=== PATIENT | female | born 1925 | race Caucasian/White ===

== ENCOUNTER 2016-11-03 13:05 | Emergency (ER) | payer BC, MEDICAID ==
--- NOTE | 2016-11-03 13:57 | EDM.PDOC ---
ED HISTORY OF PRESENT ILLNESS - General Chief Complaint: Respiratory Problem Stated Complaint: FLU? NOT MUCH URINE Time Seen by Provider: 11/03/16 13:35 Source: Reports: Patient History Limitations: Reports: No limitations - History of Present Illness INITIAL COMMENTS - FREE TEXT/NARRATIVE: 89-year-old female with cold symptoms, sore throat, intermittent cough and shortness of breath but her main concern is her decreased urination. Her caregiver thinks the urine is dark and possibly malodorous. She has no fevers or chills, cough is nonproductive, no abdominal pain nausea or vomiting. If it was just the cold symptoms they would not have come in, their main concern is the urine. No flank or back pain. Severity: mild - Related Data Allergies/ADRs: Allergies Allergy/AdvReac Type Severity Reaction Status Date / Time acetaminophen [From Percocet] Allergy Hives Verified 09/22/16 10:56 iodine Allergy Cannot Verified 09/22/16 10:56 Remember oxycodone HCl [From Percocet] Allergy Hives Verified 09/22/16 10:56 Sulfa (Sulfonamide Allergy Hives Verified 09/22/16 10:56 Antibiotics) Home Meds: Home Meds Aspirin [Halfprin] 81 mg PO DAILY 08/09/13 [History] atorvaSTATin [Lipitor] 20 mg PO BEDTIME 08/09/13 [History] Acetaminophen [Mapap] 500 mg PO QID 04/15/16 [History] Cholecalciferol (Vitamin D3) [Vitamin D3] 1 tab PO DAILY 04/15/16 [History] Multivitamin [Multivitamins] 1 cap PO DAILY 04/15/16 [History] Donepezil [Aricept] 5 mg PO BEDTIME 11/03/16 [History] Past Medical History HEENT History: Reports: Allergic rhinitis, Cataract, Sinusitis Cardiovascular History: Reports: CAD, High cholesterol, Hypertension, [place] Gastrointestinal History: Reports: Diverticulosis Musculoskeletal History: Reports: Arthritis, Back pain, chronic, Other (see below) Other Musculoskeletal History: back surgery Neurological History: Reports: Other (see below) Other Neuro History: short term memory increase in loss. Psychiatric History: Reports: Dementia Hematologic History: Reports: Anemia - Infectious Disease History Infectious Disease History: Reports: Chicken pox, Influenza, Measles, Mumps - Past Surgical History HEENT Surgical History: Reports: Cataract surgery GI Surgical History: Reports: Appendectomy Neurological Surgical History: Reports: Scoliosis, Other (see below) Other Neurological Surgeries/Procedures: some sort of back surgery at [facility] in [place] back Social & Family History - Tobacco Use Smoking Status *Q: Never Smoker Second Hand Smoke Exposure: No - Caffeine Use Caffeine Use: Reports: Coffee - Alcohol Use Days Per Week of Alcohol Use: 0 - Recreational Drug Use Recreational Drug Use: No ED ROS GENERAL - Review of Systems Review Of Systems: See Below Constitutional: Reports: malaise, other (Patient slept for 2 extra hours this morning which is unlike her). Denies: fever, chills HEENT: Reports: Throat pain (Mild) Respiratory: Reports: shortness of breath (Mild, intermittent), cough Cardiovascular: Denies: Chest pain, Palpitations GI/Abdominal: Denies: Abdominal pain, Nausea, Vomiting : Reports: other (Decreased urinary frequency and amount with dark somewhat malodorous urine) Neurological: Denies: headache ED EXAM, GENERAL - Physical Exam Exam: See Below Exam Limited By: No limitations General Appearance: alert, no apparent distress Respiratory/Chest: no respiratory distress, lungs clear Cardiovascular: regular rate, rhythm (Female) Exam: Other (No bladder distention or tenderness) Extremities: No: pedal edema Neurological: alert, oriented Course - Vital Signs Last Recorded V/S: Last Vital Signs Temp 98.6 F 11/03/16 13:33 Pulse 74 11/03/16 13:33 Resp 16 11/03/16 13:33 BP 157/72 H 11/03/16 13:33 Pulse Ox 98 11/03/16 13:33 - Orders/Labs/Meds Labs: Laboratory Tests 11/03/16 11/03/16 11/03/16 Range/Units 13:52 13:52 13:52 WBC 4.2 L (4.5-11.0) K/uL RBC 2.92 L (3.30-5.50) M/uL Hgb 9.1 L (12.0-15.0) g/dL Hct 29.6 L (36.0-48.0) % MCV 101 H (80-98) fL MCH 31 (27-31) pg MCHC 31 L (32-36) % Plt Count 307 (150-400) K/uL Neut % (Auto) 58 (36-66) % Lymph % (Auto) 22 L (24-44) % [place] % (Auto) 14 H (2-6) % Eos % (Auto) 5 H (2-4) % Baso % (Auto) 1 (0-1) % Sodium 139 L (140-148) mmol/L Potassium 3.5 L (3.6-5.2) mmol/L Chloride 103 (100-108) mmol/L Carbon Dioxide 28 (21-32) mmol/L Anion Gap 11.5 (5.0-14.0) mmol/L BUN 21 H D (7-18) mg/dL Creatinine 1.3 H (0.6-1.0) mg/dL Est Cr Clr Drug Dosing 22.14 mL/min Estimated GFR (MDRD) 39 L (>60) Glucose 112 H (74-106) mg/dL Calcium 8.4 L (8.5-10.1) mg/dL Urine Color Yellow Urine Appearance Clear Urine pH 5.0 (4.5-8.0) Ur Specific [place] 1.010 (1.008-1.030) Urine Protein Negative (NEGATIVE) mg/dL Urine Glucose (UA) Normal (NEGATIVE) mg/dL Urine Ketones Negative (NEGATIVE) mg/dL Urine Occult Blood Negative (NEGATIVE) Urine Nitrite Negative (NEGATIVE) Urine Bilirubin Negative (NEGATIVE) Urine Urobilinogen Normal (NORMAL) mg/dL Ur Leukocyte Esterase Negative (NEGATIVE) Urine RBC 0-5 (0-5) Urine WBC 0-5 (0-5) Ur Epithelial Cells Few Amorphous Sediment Few Urine Bacteria Not seen Urine Mucus Not seen - Re-Assessments/Exams Free Text/Narrative Re-Assessment/Exam: 11/03/16 13:57 A UA was obtained, along with a CBC and BMP. 11/03/16 15:40 Labs were reassuring along with a normal UA. Her creatinine was 1.3, GFR 39 which is consistent with past readings. Specific gravity was 1.010. Departure - Departure Time of Disposition: 14:53 Disposition: Home, Self-Care 01 Condition: good Clinical Impression: Viral URI with cough, History of changes to urinary frequency Instructions: Upper Respiratory Infection, Pediatric, [id number], Acute Urinary Retention, Female, [id number] Referrals: Aisha Zhang CHEMICAL PATHOLOGIST [Primary Care Provider] - Forms: ED Department Discharge Care Plan Goals: Continue with rest, fluids, and return as needed.
[2016-11-03 14:18] VITALS: BP 157/72
== END 2016-11-03 14:53 | disposition home or self-care (01) ==
LOC: JP.ED 13:05
DX: J06.9 Acute upper respiratory infection, unspecified (principal); I25.2 Old myocardial infarction; I10 Essential (primary) hypertension; I25.10 Atherosclerotic heart disease of native coronary artery without angina pectoris; E78.00 Pure hypercholesterolemia, unspecified; F03.90 Unspecified dementia, unspecified severity, without behavioral disturbance, psychotic disturbance, mood disturbance, and anxiety; Z79.82 Long term (current) use of aspirin; Z79.899 Other long term (current) drug therapy; Z88.2 Allergy status to sulfonamides; Z88.5 Allergy status to narcotic agent; Z88.8 Allergy status to other drugs, medicaments and biological substances; Z91.041 Radiographic dye allergy status
CPT/HCPCS: 36415; 80048; 81001; 85025; 99282; 99283

== ENCOUNTER 2016-12-14 10:14 | Observation (INO) | payer BC ==
--- NOTE | 2016-12-14 11:03 | EDM.PDOC ---
[id number]: CHEST PAIN/ GOING DOWN LT ARM Time Seen by Provider: 12/14/16 10:45 Source: Reports: Patient History Limitations: Reports: No limitations - History of Present Illness INITIAL COMMENTS - FREE TEXT/NARRATIVE: 89-year-old female with known coronary artery disease woke this morning with some moderate chest pressure with some pain radiating into her arm. She thought she may have had some mild shortness of breath as well but no diaphoresis or nausea. This was 5-6 hours ago, she called her neighbor later this morning to come in to be checked although she was feeling fine and the pain had resolved. Her neighbor think she looks "a little pale". Severity: mild Location, General: Reports: chest Quality: Reports: Ache Associated Symptoms: Reports: chest pain. Denies: cough, nausea/vomiting, weakness - Related Data Allergies/ADRs: Allergies Allergy/AdvReac Type Severity Reaction Status Date / Time acetaminophen [From Percocet] Allergy Hives Verified 09/22/16 10:56 iodine Allergy Cannot Verified 09/22/16 10:56 Remember oxycodone HCl [From Percocet] Allergy Hives Verified 09/22/16 10:56 Sulfa (Sulfonamide Allergy Hives Verified 09/22/16 10:56 Antibiotics) Home Meds: Home Meds Aspirin [Halfprin] 81 mg PO DAILY 08/09/13 [History] atorvaSTATin [Lipitor] 20 mg PO BEDTIME 08/09/13 [History] Acetaminophen [Mapap] 500 mg PO QID 04/15/16 [History] Cholecalciferol (Vitamin D3) [Vitamin D3] 1 tab PO DAILY 04/15/16 [History] Multivitamin [Multivitamins] 1 cap PO DAILY 04/15/16 [History] Donepezil [Aricept] 5 mg PO BEDTIME 11/03/16 [History] Irbesartan 300 mg PO DAILY 12/14/16 [History] Ferrous Sulfate 325 mg PO DAILY #30 tablet 12/15/16 [Rx] Omeprazole 20 mg PO DAILY #30 cap.cr 12/15/16 [Rx] Past Medical History HEENT History: Reports: Allergic rhinitis, Cataract, Sinusitis Cardiovascular History: Reports: CAD, High cholesterol, Hypertension, [place] Gastrointestinal History: Reports: Diverticulosis Musculoskeletal History: Reports: Arthritis, Back pain, chronic, Other (see below) Other Musculoskeletal History: back surgery Neurological History: Reports: Other (see below) Other Neuro History: short term memory increase in loss. Psychiatric History: Reports: Dementia Hematologic History: Reports: Anemia - Infectious Disease History Infectious Disease History: Reports: Chicken pox, Influenza, Measles, Mumps - Past Surgical History HEENT Surgical History: Reports: Cataract surgery GI Surgical History: Reports: Appendectomy Neurological Surgical History: Reports: Scoliosis, Other (see below) Other Neurological Surgeries/Procedures: some sort of back surgery at [facility] [place] Social & Family History - Tobacco Use Smoking Status *Q: Never Smoker Second Hand Smoke Exposure: No - Caffeine Use Caffeine Use: Reports: Coffee - Alcohol Use Days Per Week of Alcohol Use: 0 - Recreational Drug Use Recreational Drug Use: No ED ROS GENERAL - Review of Systems Review Of Systems: See Below Constitutional: Reports: malaise. Denies: fever, chills HEENT: Reports: No symptoms Respiratory: Denies: Shortness of Breath, Cough Cardiovascular: Reports: Chest pain. Denies: Palpitations GI/Abdominal: Reports: Nausea (Mild nausea this morning). Denies: Abdominal pain : Reports: no symptoms Skin: Reports: pallor Neurological: Reports: Weakness ED EXAM, GENERAL - Physical Exam Exam: See Below Exam Limited By: No limitations General Appearance: alert, no apparent distress Eye Exam: bilateral eye: normal inspection (No jaundice good hydration) Respiratory/Chest: no respiratory distress, lungs clear Cardiovascular: regular rate, rhythm GI/Abdominal: soft, non tender Extremities: normal inspection, pedal edema (Just a trace of symmetric lower extremity edema is present) Neurological: alert, oriented Psychiatric: flat affect Skin Exam: Warm, Dry EKG INTERPRETATION Rhythm: NSR Course - Vital Signs Last Recorded V/S: Last Vital Signs Temp 98.6 F 12/15/16 11:13 Pulse 64 12/15/16 11:13 Resp 16 12/15/16 11:13 BP 154/65 H 12/15/16 11:13 Pulse Ox 97 12/15/16 11:13 - Orders/Labs/Meds Labs: Laboratory Tests 12/14/16 12/14/16 12/14/16 Range/Units 11:09 11:09 11:09 WBC 5.6 (4.5-11.0) K/uL RBC 2.78 L (3.30-5.50) M/uL Hgb 8.0 L (12.0-15.0) g/dL Hct 26.3 L (36.0-48.0) % MCV 95 (80-98) fL MCH 29 (27-31) pg MCHC 30 L (32-36) % Plt Count 357 (150-400) K/uL Neut % (Auto) 66 (36-66) % Lymph % (Auto) 20 L (24-44) % [place] % (Auto) 11 H (2-6) % Eos % (Auto) 3 (2-4) % Baso % (Auto) 1 (0-1) % Sodium 144 (140-148) mmol/L Potassium 4.2 (3.6-5.2) mmol/L Chloride 107 (100-108) mmol/L Carbon Dioxide 25 (21-32) mmol/L Anion Gap 11.8 (5.0-14.0) mmol/L BUN 17 (7-18) mg/dL Creatinine 1.0 (0.6-1.0) mg/dL Est Cr Clr Drug Dosing TNP Estimated GFR (MDRD) 52 L (>60) Glucose 102 (74-106) mg/dL Calcium 8.3 L (8.5-10.1) mg/dL Total Bilirubin 0.2 (0.2-1.0) mg/dL AST 15 (15-37) U/L ALT 19 (12-78) U/L Alkaline Phosphatase 70 (46-116) U/L Troponin I < 0.017 (0.000-0.056) ng/mL Total Protein 6.6 (6.4-8.2) g/dL Albumin 3.2 L (3.4-5.0) g/dL Globulin 3.4 (2.3-3.5) g/dL Albumin/Globulin Ratio 0.9 L (1.2-2.2) Blood Type B POSITIVE Gel Antibody Screen Negative Crossmatch See Detail Meds: Medications Discontinued Medications Generic Name Dose Route Start Last Admin Trade Name Freq PRN Reason Stop Dose Admin Acetaminophen 500 mg 12/14/16 16:00 12/15/16 10:27 Tylenol Extra Strength PO 500 mg QID EBONY Administration Al Hydroxide/Mg Hydroxide 30 ml 12/14/16 16:20 12/14/16 16:40 Mag-Al Plus PO 30 ml Q4H PRN Administration Heartburn Aspirin 81 mg 12/15/16 09:00 12/15/16 08:50 Halfprin PO 81 mg DAILY EBONY Administration Atorvastatin Calcium 20 mg 12/14/16 21:00 12/14/16 21:36 Lipitor PO 20 mg BEDTIME EBONY Administration Calcium Carbonate/Glycine 1,000 mg 12/14/16 17:07 Tums PO Q2H PRN Indigestion Iron Sucrose 100 mg/ Sodium 105 mls @ 400 mls/hr 12/15/16 09:30 12/15/16 10: 14 Chloride IV 12/15/16 09:45 400 mls/hr ONETIME ONE Administration Ibuprofen 400 mg 12/14/16 17:07 Motrin PO Q6H PRN Pain/Fever (Donepezil [Aricept] 5 mg 12/14/16 21:00 12/14/16 21:36 5 Mg)Pom PO 5 mg BEDTIME EBONY Administration (Multivitamin [ 1 cap 12/15/16 09:00 12/15/16 08:50 Multivitamins] 1 Cap PO 1 cap )Pom DAILY EBONY Administration (Irbesartan [ 300 mg 12/15/16 09:00 12/15/16 08:50 Irbesartan] 300 Mg)* PO 300 mg *Pom DAILY EBONY Administration Ondansetron HCl 4 mg 12/14/16 15:24 Zofran Odt PO Q6H PRN Nausea able to take PO Pantoprazole Sodium 40 mg 12/14/16 21:00 12/14/16 21:36 Protonix PO 40 mg BEDTIME EBONY Administration Pantoprazole Sodium 40 mg 12/15/16 09:00 12/15/16 08:52 Protonix PO 40 mg DAILY EBONY Administration Polyethylene Glycol 17 gm 12/14/16 15:24 Miralax PO DAILY PRN Constipation - Re-Assessments/Exams Free Text/Narrative Re-Assessment/Exam: 12/14/16 11:57 CBC, CMP and troponin were obtained. EKG showed normal sinus rhythm. Hemoglobin returned an 8.0, it's been over 11 as recently as 3-4 months ago. A stool guaiac was then obtained 12/14/16 12:21 Stool Hemoccult was negative. I asked Dr. Pablo of the hospitalist service to visit with the patient to consider admission for possible transfusion or other therapy or treatment. Departure - Departure Time of Disposition: 13:42 Disposition: Admitted As Inpatient 68 Condition: fair Clinical Impression: Anemia Qualifiers: Anemia type: iron deficiency Iron deficiency anemia type: unspecified iron deficiency Qualified Code(s): D50.9 - Iron deficiency anemia, unspecified Chest pain Qualifiers: Chest pain type: precordial pain Qualified Code(s): R07.2 - Precordial pain
--- NOTE | 2016-12-14 12:46 | PCM.HP ---
H&P History of Present Illness - General Date of Service: 12/14/16 Admit Problem/Dx: Admission Diagnosis/Problem Admission Diagnosis/Problem Anemia Source of Information: Patient, Family, Provider History Limitations: Reports: No limitations - History of Present Illness Initial Comments - Free Text/Narative: Steffanie presents to the emergency room this morning after having an episode of chest pressure early this morning. Because of her dementia she has some difficulty recalling the exact details. She thinks that she woke up this morning with some slight discomfort in the middle of her chest. This was pressure like and very mild. It did not radiate and stayed relatively constant but she is not quite sure of the duration. Discomfort when away on its own without any sort of intervention. She believes this is similar to pains that she's had in the past. She does not think that she had associated symptoms such as diaphoresis, shortness of breath or palpitations. She's not aware of any recent fevers. She does note that she has been feeling weak and fatigued over the past few weeks as compared to her baseline. Her appetite is not very impressive but is at baseline. No weight changes. No dysuria. Bowel movements have been relatively normal but one of her caregivers thinks that maybe they have been darker than usual. No obvious blood in her stool or hematemesis. Workup in the emergency room revealed a normal EKG and normal troponin. No major concerns for acute coronary syndrome based on emergency room evaluation but her hemoglobin was noted to be 8 and was more than 10 just a couple of months ago. She will be admitted for blood transfusion at additional workup. - Related Data Allergies/Adverse Reactions: Allergies Allergy/AdvReac Type Severity Reaction Status Date / Time acetaminophen [From Percocet] Allergy Hives Verified 09/22/16 10:56 iodine Allergy Cannot Verified 09/22/16 10:56 Remember oxycodone HCl [From Percocet] Allergy Hives Verified 09/22/16 10:56 Sulfa (Sulfonamide Allergy Hives Verified 09/22/16 10:56 Antibiotics) Home Medications: Home Meds Aspirin [Halfprin] 81 mg PO DAILY 08/09/13 [History] atorvaSTATin [Lipitor] 20 mg PO BEDTIME 08/09/13 [History] Acetaminophen [Mapap] 500 mg PO QID 04/15/16 [History] Cholecalciferol (Vitamin D3) [Vitamin D3] 1 tab PO DAILY 04/15/16 [History] Multivitamin [Multivitamins] 1 cap PO DAILY 04/15/16 [History] Donepezil [Aricept] 5 mg PO BEDTIME 11/03/16 [History] Irbesartan 300 mg PO DAILY 12/14/16 [History] Past Medical History HEENT History: Reports: Allergic rhinitis, Cataract, Sinusitis Cardiovascular History: Reports: CAD, High cholesterol, Hypertension, [place] Gastrointestinal History: Reports: Diverticulosis Musculoskeletal History: Reports: Arthritis, Back pain, chronic, Other (see below) Other Musculoskeletal History: back surgery Neurological History: Reports: Other (see below) Other Neuro History: short term memory increase in loss. Psychiatric History: Reports: Dementia Hematologic History: Reports: Anemia - Infectious Disease History Infectious Disease History: Reports: Chicken pox, Influenza, Measles, Mumps - Past Surgical History HEENT Surgical History: Reports: Cataract surgery GI Surgical History: Reports: Appendectomy Neurological Surgical History: Reports: Scoliosis, Other (see below) Other Neurological Surgeries/Procedures: some sort of back surgery at [facility] in [place] Social & Family History - Family History Cardiac: Reports: CAD - Tobacco Use Smoking Status *Q: Never Smoker Second Hand Smoke Exposure: No - Caffeine Use Caffeine Use: Reports: Coffee - Alcohol Use Days Per Week of Alcohol Use: 0 - Recreational Drug Use Recreational Drug Use: No H&P Review of Systems - Review of Systems: Review Of Systems: See Below Free Text/Narrative: A complete 12 point review of systems was obtained. Pertinent positives and negatives are noted in the history of present illness. All other systems were reviewed and were negative except as noted. Exam - Exam Exam: See Below - Vital Signs Vital Signs: Last Vital Signs Temp 36.5 C 12/14/16 10:49 Pulse 69 12/14/16 12:25 Resp 15 12/14/16 12:25 BP 148/59 H 12/14/16 11:40 Pulse Ox 97 12/14/16 12:25 Weight: 54.431 kg - Exam Quality Assessment: No: supplemental oxygen, urinary catheter General: alert, cooperative, mild distress HEENT: Conjunctiva clear, Mucosa moist & pink. No: Scleral icterus Neck: supple, trachea midline. No: JVD Lungs: Clear to auscultation, Normal respiratory effort Cardiovascular: regular rate, regular rhythm, normal S1, normal S2. No: systolic murmur Abdomen: normal bowel sounds, soft. No: distention, tenderness, mass Back Exam: normal inspection, full range of motion Extremities: normal inspection. No: cyanosis, edema Skin: warm, dry, intact. No: rash, petechia Neuro Extensive - Mental Status: alert, oriented x3, nl response to commands Neuro Extensive - Motor, Sensory, Reflexes: CN II-XII intact, tremor (Essential tremor of right hand). No: dysarthria, abnormal motor Psychiatric: alert, normal affect - Patient Data Lab Results last 24 hrs: Laboratory Results - last 24 hr 12/14/16 12/14/16 Range/Units 11:09 11:09 WBC 5.6 (4.5-11.0) K/uL RBC 2.78 L (3.30-5.50) M/uL Hgb 8.0 L (12.0-15.0) g/dL Hct 26.3 L (36.0-48.0) % MCV 95 (80-98) fL MCH 29 (27-31) pg MCHC 30 L (32-36) % Plt Count 357 (150-400) K/uL Neut % (Auto) 66 (36-66) % Lymph % (Auto) 20 L (24-44) % [place] % (Auto) 11 H (2-6) % Eos % (Auto) 3 (2-4) % Baso % (Auto) 1 (0-1) % Sodium 144 (140-148) mmol/L Potassium 4.2 (3.6-5.2) mmol/L Chloride 107 (100-108) mmol/L Carbon Dioxide 25 (21-32) mmol/L Anion Gap 11.8 (5.0-14.0) mmol/L BUN 17 (7-18) mg/dL Creatinine 1.0 (0.6-1.0) mg/dL Est Cr Clr Drug Dosing TNP Estimated GFR (MDRD) 52 L (>60) Glucose 102 (74-106) mg/dL Calcium 8.3 L (8.5-10.1) mg/dL Total Bilirubin 0.2 (0.2-1.0) mg/dL AST 15 (15-37) U/L ALT 19 (12-78) U/L Alkaline Phosphatase 70 (46-116) U/L Troponin I < 0.017 (0.000-0.056) ng/mL Total Protein 6.6 (6.4-8.2) g/dL Albumin 3.2 L (3.4-5.0) g/dL Globulin 3.4 (2.3-3.5) g/dL Albumin/Globulin Ratio 0.9 L (1.2-2.2) Result Diagrams: 12/14/16 11:09 12/14/16 11:09 Marycruz Results last 24 hrs: Microbiology 12/14/16 11:47 Stool Occult Blood (MARYCRUZ) - Final Stool / Feces NEGATIVE OCCULT BLOOD EKG INTERPRETATION EKG Date: 12/14/16 Rhythm: NSR Rate (beats/min): 65 [place]: normal P-wave: present QRS: normal ST-T: normal QT: normal EKG Interpretation Comments: This image was personally reviewed and interpreted in the emergency room *Q Meaningful Use (ADM) - VTE *Q VTE Criteria *Q: - Stroke *Q Stroke Criteria *Q: - AMI *Q AMI Criteria *Q: - Problem List (1) Atypical chest pain SNOMED Code(s): 437450807 ICD Code: R07.89 - OTHER CHEST PAIN Status: Acute Current Visit: Yes (2) Normocytic anemia SNOMED Code(s): 630962937 ICD Code: D64.9 - ANEMIA, UNSPECIFIED Status: Acute Current Visit: Yes (3) Coronary artery disease SNOMED Code(s): 84374247 ICD Code: I25.10 - ATHSCL HEART DISEASE OF [place] CORONARY ARTERY W/O ANG PCTRS Status: Acute Current Visit: Yes Qualifiers: Coronary Disease-Associated Artery/Lesion type: [place] artery [place] vs. transplanted heart: [place] heart Associated angina: without angina Qualified Code(s): I25.10 - Atherosclerotic heart disease of [place] coronary artery without angina pectoris (4) Dementia SNOMED Code(s): 55415519 ICD Code: F03.90 - UNSPECIFIED DEMENTIA WITHOUT BEHAVIORAL DISTURBANCE Status: Acute Current Visit: Yes Qualifiers: Dementia type: Alzheimer's disease Alzheimer's disease onset: late-onset Problem List Initiated/Reviewed/Updated: Yes Orders Last 24hrs: Active Orders 24 hr Category Date Time Status Patient Status Manage Transfer [TRANSFER] Routine ADT 12/14/16 12:37 Active EKG Documentation Completion [RC] ASDIRECTED Care 12/14/16 11:03 Active RED BLOOD CELLS LP [BBK] Routine Lab 12/14/16 11:09 Received TYPE AND SCREEN [BBK] Routine Lab 12/14/16 11:09 Received Transfuse Red Blood Cells [COMM] Routine Oth 12/14/16 12:35 Ordered Resuscitation Status Routine Resus Stat 12/14/16 12:38 Ordered EKG 12 Lead [EK] Routine Ther 12/14/16 11:03 Ordered Assessment/Plan Comment:: Assessment and plan - Atypical chest pain/pressure - recent stress testing was unremarkable. Pain is very atypical and could be gastrointestinal versus atypical cardiac pain in the setting of anemia. Troponin normal and EKG unremarkable and unchanged. Recent functional status has been acceptable and there have been no limitations during therapy. She was hypertensive on arrival but this has been improving. -Continue blood pressure control -Monitor for GI symptoms -I don't believe she needs additional cardiac workup unless something changes Normocytic anemia - Baseline hemoglobin around 10.5 and now down to 8. Could be do to blood loss or poor production or poor absorption of iron. Hemoccult was negative. No drastic weight changes to raise concern for progressive malignancy. She is not hemodynamically unstable at this time. With her history of coronary artery disease and this episode of chest pressure, even though I don't think it is cardiac, I'm going to transfuse 1 unit of packed red blood cells. -Type and cross for one unit of packed red blood cells -Iron, ferritin, B12 levels in the morning -Repeat hemoglobin in the morning -Discuss risk versus benefit of outpatient endoscopy if above workup is unremarkable and she does not respond to the blood transfusion. Alzheimer's type dementia without behavioral disturbance - Mild issues at this time, still lives fairly independently with some help from friends and family. -Continue donepezil Maintenance issues - - DVT prophylaxis - mechanical - GI prophylaxis - consider proton pump inhibitor - Nutrition - regular diet - Bui catheter - not indicated CODE STATUS - Full Admission justification - patient will be referred observation status for blood transfusion and repeat lab testing Disposition - anticipate discharge to home tomorrow Primary care physician - Dr Ross Pablo M.D.
[2016-12-14] MEDS ORDERED: Ondansetron 4 MG Tab.DIS PO PRN (15:24)
[2016-12-14] MEDS ORDERED: Polyethylene Glycol 3350 Powder 17 GM Packet PO PRN (15:24)
[2016-12-14] MEDS ORDERED: Aluminum Hydroxide/Magnesium Hydroxide/Simethicone Susp 30 ML Cup PO PRN (16:20)
[2016-12-14] MEDS: Acetaminophen 500 MG Tab PO SCH ×2 (16:30→21:36)
[2016-12-14] MEDS ORDERED: Ibuprofen 400 MG Tab PO PRN (17:07)
[2016-12-14] MEDS ORDERED: Calcium Carbonate 500 MG Tab.Chew PO PRN (17:07)
[2016-12-14] MEDS ORDERED: Pantoprazole 40 MG Tab.CR PO SCH (21:00)
[2016-12-14] MEDS ORDERED: ATORVASTATIN 20 MG PO SCH (21:00)
[2016-12-14] MEDS ORDERED: DONEPEZIL 5 MG PO SCH (21:00)
[2016-12-15] MEDS: Acetaminophen 500 MG Tab PO SCH ×2 (05:56→10:27)
[2016-12-15] MEDS ORDERED: Pantoprazole 40 MG Tab.CR PO SCH (09:00)
[2016-12-15] MEDS ORDERED: Aspirin 81 MG Tab.EC PO SCH (09:00)
[2016-12-15] MEDS ORDERED: Iron Sucrose Complex 100 MG in Sodium Chloride 0.9% 100 ML IV ONE (09:30)
[2016-12-15 11:14] VITALS: BP 154/65
--- NOTE | 2016-12-15 11:21 | PCM.DCSUM1 ---
Discharge Summary - Hospital Course Brief History: 89-year-old female with history of coronary artery disease and mild dementia who presents with an episode of chest pain and was admitted for observation as well as management of iron deficiency anemia. - Discharge Data Discharge Date: 12/15/16 Discharge Disposition: Home, Self-Care 01 Condition: Good - Discharge Diagnosis/Problem(s) (1) Iron deficiency anemia SNOMED Code(s): 23803278 ICD Code: D50.9 - IRON DEFICIENCY ANEMIA, UNSPECIFIED Status: Acute Qualifiers: Iron deficiency anemia type: unspecified iron deficiency Qualified Code(s) : D50.9 - Iron deficiency anemia, unspecified (2) Atypical chest pain SNOMED Code(s): 813337065 ICD Code: R07.89 - OTHER CHEST PAIN Status: Acute (3) Coronary artery disease SNOMED Code(s): 15551545 ICD Code: I25.10 - ATHSCL HEART DISEASE OF [place] CORONARY ARTERY W/O ANG PCTRS Status: Chronic Qualifiers: Coronary Disease-Associated Artery/Lesion type: [place] artery [place] vs. transplanted heart: [place] heart Associated angina: without angina Qualified Code(s): I25.10 - Atherosclerotic heart disease of [place] coronary artery without angina pectoris (4) Dementia SNOMED Code(s): 13858393 ICD Code: F03.90 - UNSPECIFIED DEMENTIA WITHOUT BEHAVIORAL DISTURBANCE Status: Chronic Qualifiers: Dementia type: Alzheimer's disease Alzheimer's disease onset: late-onset - Patient Summary/Data Consults: Consultations 12/15/16 07:29 Consult to Physical Therapy [PT Evaluation and Treatment] [CONS] Routine Please Evaluate and Treat. PT Reason for Consult: strength This query below is only for informational purposes and is not editable. Admission Diagnosis/Problem: Anemia Hospital Course: Steffanie presented to the emergency room after an episode of chest pressure. Workup in the emergency room did not reveal evidence for acute coronary syndrome but did reveal a hemoglobin of 8. She was admitted for management. With the episode of chest pressure and hemoglobin of 8 we elected to transfuse 1 unit of blood. I doubt that the episode of chest pain was related to the anemia but is to small vessel disease could explain the pain. I am more suspicious that her chest discomfort symptoms are related to her esophageal reflux disease were possibly some gastritis. I suspect that her anemia was related to either chronic blood loss such as a slow loss from gastritis or possibly poor absorption or poor intake of iron. We did discover that her iron levels were quite low and her ferritin level was barely detectable. She did receive one unit of blood via transfusion and also received a 100 mg of Venofer the day after admission. We discussed potential management options including the most aggressive course which would involve endoscopy versus a less invasive course which would be to start her on a proton pump inhibitor and iron supplement and watch her hemoglobin over time. She felt that the second option would be better and would like to avoid more aggressive and potentially dangerous interventions. The plan is for her to return home with her usual care providers. She will be taking an iron supplement once a day. She will be on a proton inhibitor for 3 months. She should have her hemoglobin checked in a couple of weeks. - Patient Instructions Diet: Heart Healthy Diet Activity: As Tolerated Showering/Bathing: May Shower Notify Provider of: Fever, Increased Pain, Nausea and/or Vomiting Other/Special Instructions: 1. You were in the hospital for observation after an episode of chest pressure and the discovery of anemia caused by iron deficiency. There was no evidence that you had a heart attack and I don't believe we need to do additional workup because you just had a stress test. Your hemoglobin level was low enough that we need to give you a blood transfusion. Your blood levels have responded very nicely to the transfusion. With the low iron levels I do recommend ongoing supplementation with a once daily iron supplements. I have also provided an instruction sheet for foods that are rich in iron. 2. I suspect that you have some possibly mild inflammation or maybe a small ulcer in your stomach that is causing your chest discomfort and possibly leading to slow blood loss and the iron deficiency. I recommend that you take omeprazole 20 mg once daily for 3 months to help heal up any inflammation or ulceration. 3. Please seek medical attention if you develop fever greater than 101, have severe chest pain, sudden onset shortness of breath or persistent nausea with vomiting. - Discharge Plan Prescriptions/Med Rec: Ferrous Sulfate 325 mg PO DAILY #30 tablet Omeprazole 20 mg PO DAILY #30 cap.cr Home Medications: Home Meds Aspirin [Halfprin] 81 mg PO DAILY 08/09/13 [History] atorvaSTATin [Lipitor] 20 mg PO BEDTIME 08/09/13 [History] Acetaminophen [Mapap] 500 mg PO QID 04/15/16 [History] Cholecalciferol (Vitamin D3) [Vitamin D3] 1 tab PO DAILY 04/15/16 [History] Multivitamin [Multivitamins] 1 cap PO DAILY 04/15/16 [History] Donepezil [Aricept] 5 mg PO BEDTIME 11/03/16 [History] Irbesartan 300 mg PO DAILY 12/14/16 [History] Ferrous Sulfate 325 mg PO DAILY #30 tablet 12/15/16 [Rx] Omeprazole 20 mg PO DAILY #30 cap.cr 12/15/16 [Rx] Patient Handouts: Iron-Rich Diet Referrals: Yg Hawkins MD [Primary Care Provider] - (f/u in two weeks - f/u hospital stay for iron deficiency anemia) - Discharge Summary/Plan Comment DC Time >30 min.: No (25) - Patient Data Vitals - Most Recent: Last Vital Signs Temp 37.0 C 12/15/16 11:13 Pulse 64 12/15/16 11:13 Resp 16 12/15/16 11:13 BP 154/65 H 12/15/16 11:13 Pulse Ox 97 12/15/16 11:13 Weight - Most Recent: 54.431 kg I&O - Last 24 hours: Intake & Output 12/14/16 12/15/16 12/15/16 22:59 06:59 14:59 Intake Total 420 360 Output Total 351 Balance 420 -351 360 Lab Results - Last 24 hrs: Laboratory Results - last 24 hr 12/14/16 12/15/16 12/15/16 Range/Units 15:41 05:53 05:53 WBC 6.1 (4.5-11.0) K/uL RBC 3.24 L (3.30-5.50) M/uL Hgb 9.4 L (12.0-15.0) g/dL Hct 29.9 L (36.0-48.0) % MCV 92 (80-98) fL MCH 29 (27-31) pg MCHC 31 L (32-36) % Plt Count 311 (150-400) K/uL Sodium 148 (140-148) mmol/L Potassium 3.9 (3.6-5.2) mmol/L Chloride 111 H (100-108) mmol/L Carbon Dioxide 28 (21-32) mmol/L Anion Gap 12.9 (5.0-14.0) mmol/L BUN 19 H (7-18) mg/dL Creatinine 0.9 (0.6-1.0) mg/dL Est Cr Clr Drug Dosing 31.98 mL/min Estimated GFR (MDRD) 59 L (>60) Glucose 89 (74-106) mg/dL Calcium 8.3 L (8.5-10.1) mg/dL Magnesium 1.9 (1.8-2.4) mg/dL Iron (50-170) ug/dL Ferritin 10 (8-388) ng/ml Vitamin B12 529 (193-986) pg/ml 12/15/16 Range/Units 05:53 WBC (4.5-11.0) K/uL RBC (3.30-5.50) M/uL Hgb (12.0-15.0) g/dL Hct (36.0-48.0) % MCV (80-98) fL MCH (27-31) pg MCHC (32-36) % Plt Count (150-400) K/uL Sodium (140-148) mmol/L Potassium (3.6-5.2) mmol/L Chloride (100-108) mmol/L Carbon Dioxide (21-32) mmol/L Anion Gap (5.0-14.0) mmol/L BUN (7-18) mg/dL Creatinine (0.6-1.0) mg/dL Est Cr Clr Drug Dosing mL/min Estimated GFR (MDRD) (>60) Glucose (74-106) mg/dL Calcium (8.5-10.1) mg/dL Magnesium (1.8-2.4) mg/dL Iron 34 L (50-170) ug/dL Ferritin (8-388) ng/ml Vitamin B12 (193-986) pg/ml Med Orders - Current: Current Medications Acetaminophen (Tylenol Extra Strength) 500 mg PO QID EBONY Last Admin: 12/15/16 10:27 Dose: 500 mg Al Hydroxide/Mg Hydroxide (Mag-Al Plus) 30 ml PO Q4H PRN PRN Reason: Heartburn Last Admin: 12/14/16 16:40 Dose: 30 ml Aspirin (Halfprin) 81 mg PO DAILY EBONY Last Admin: 12/15/16 08:50 Dose: 81 mg Atorvastatin Calcium (Lipitor) 20 mg PO BEDTIME EBONY Last Admin: 12/14/16 21:36 Dose: 20 mg Calcium Carbonate/Glycine (Tums) 1,000 mg PO Q2H PRN PRN Reason: Indigestion Ibuprofen (Motrin) 400 mg PO Q6H PRN PRN Reason: Pain/Fever (Donepezil [Aricept] (5 Mg)Pom) 5 mg PO BEDTIME [facility] Last Admin: 12/14/16 21:36 Dose: 5 mg (Multivitamin [ Multivitamins] 1 Cap )Pom 1 cap PO DAILY [facility] Last Admin: 12/15/16 08:50 Dose: 1 cap (Irbesartan [ Irbesartan] 300 Mg)* *Pom 300 mg PO DAILY [facility] Last Admin: 12/15/16 08:50 Dose: 300 mg Ondansetron HCl (Zofran Odt) 4 mg PO Q6H PRN PRN Reason: Nausea able to take PO Pantoprazole Sodium (Protonix) 40 mg PO BEDTIME [facility] Last Admin: 12/14/16 21:36 Dose: 40 mg Pantoprazole Sodium (Protonix) 40 mg PO DAILY [facility] Last Admin: 12/15/16 08:52 Dose: 40 mg Polyethylene Glycol (Miralax) 17 gm PO DAILY PRN PRN Reason: Constipation Discontinued Medications Iron Sucrose 100 mg/ Sodium (Chloride) 105 mls @ 400 mls/hr IV ONETIME ONE Stop: 12/15/16 09:45 Last Admin: 12/15/16 10:14 Dose: 400 mls/hr *Q Meaningful Use (DIS) - VTE *Q VTE Criteria *Q: VTE Pharmacological Contraindications *Q: Risk of Bleeding - Stroke *Q Stroke Criteria *Q: - AMI *Q AMI Criteria *Q:
== END 2016-12-15 13:50 | disposition home or self-care (01) ==
LOC: JP.ED 10:14 → JP.MS 12:37
PROVIDERS: ADMIT Internal Medicine; ATTEND Internal Medicine
DX: D50.9 Iron deficiency anemia, unspecified (principal); R07.89 Other chest pain; I25.10 Atherosclerotic heart disease of native coronary artery without angina pectoris; F03.90 Unspecified dementia, unspecified severity, without behavioral disturbance, psychotic disturbance, mood disturbance, and anxiety; Z79.82 Long term (current) use of aspirin; Z79.899 Other long term (current) drug therapy; Z88.2 Allergy status to sulfonamides; Z88.8 Allergy status to other drugs, medicaments and biological substances; E78.00 Pure hypercholesterolemia, unspecified; I10 Essential (primary) hypertension; Z90.49 Acquired absence of other specified parts of digestive tract; Z98.890 Other specified postprocedural states
CPT/HCPCS: 36415; 36430; 80048; 80053; 82272; 82607; 82728; 83540; 83735; 84484; 85025; 85027; 86850; 86900; 86901; 86920; 86922; 93005; 96374; 97161; 99285; A9270; G0378; J1756; J7030; P9016

== ENCOUNTER 2017-03-04 08:52 | Emergency (ER) | payer BC ==
[2017-03-04] MEDS ORDERED: Aspirin 81 MG Tab.Chew PO ONE (09:28)
[2017-03-04] MEDS ORDERED: Nitroglycerin 0.4 MG Tab.SL SL PRN (09:28)
--- NOTE | 2017-03-04 09:32 | EDM.PDOC ---
ED HPI GENERAL MEDICAL PROBLEM - General Chief Complaint: Chest Pain Stated Complaint: CHEST PAIN Time Seen by Provider: 03/04/17 09:22 Source of Information: Reports: Patient, Family, Old Records, RN Notes Reviewed History Limitations: Reports: No Limitations - History of Present Illness INITIAL COMMENTS - FREE TEXT/NARRATIVE: 89-year-old female presents emergency department day complaint of chest pressure , she is known history of coronary artery disease has been to the emergency department as well as hospital admissions for multiple chest pain episodes recent stress test with myocardial perfusion shows fixed defect no overt reversibility that was done September 2016. Last hospital admission December of this year negative for rule out. She states this particular event started having chest pain this morning while she was sitting in the chair describes pressure, shortness of breath with nausea no diaphoresis she has been having chest pain on and off for the last week or so has not used her nitroglycerin consistently was brought in by home health nurse Chest Pain Score (Numeric/FACES): 5 - Related Data Allergies Allergy/AdvReac Type Severity Reaction Status Date / Time iodine Allergy Cannot Verified 03/04/17 09:11 Remember oxycodone HCl [From Percocet] Allergy Hives Verified 03/04/17 09:11 Sulfa (Sulfonamide Allergy Hives Verified 03/04/17 09:11 Antibiotics) Home Meds: Home Meds Aspirin [Halfprin] 81 mg PO DAILY 08/09/13 [History] atorvaSTATin [Lipitor] 20 mg PO BEDTIME 08/09/13 [History] Acetaminophen [Mapap] 500 mg PO QID 04/15/16 [History] Cholecalciferol (Vitamin D3) [Vitamin D3] 1 tab PO DAILY 04/15/16 [History] Multivitamin [Multivitamins] 1 cap PO DAILY 04/15/16 [History] Donepezil [Aricept] 5 mg PO BEDTIME 11/03/16 [History] Irbesartan 300 mg PO DAILY 12/14/16 [History] Ferrous Sulfate 325 mg PO DAILY #30 tablet 12/15/16 [Rx] Omeprazole 20 mg PO DAILY #30 cap.cr 12/15/16 [Rx] *Excedrin 1 tab PO QID 03/04/17 [History] Past Medical History HEENT History: Reports: Allergic Rhinitis, Cataract, Sinusitis Cardiovascular History: Reports: CAD, High Cholesterol, Hypertension, [place] Gastrointestinal History: Reports: Diverticulosis Musculoskeletal History: Reports: Arthritis, Back Pain, Chronic Other Musculoskeletal History: back surgery Neurological History: Reports: Alzheimers Disease Other Neuro History: short term memory increase in loss. Psychiatric History: Reports: Dementia Hematologic History: Reports: Anemia - Infectious Disease History Infectious Disease History: Reports: Chicken Pox, Influenza, Measles, Mumps - Past Surgical History HEENT Surgical History: Reports: Cataract Surgery Cardiovascular Surgical History: Reports: Coronary Artery Stent GI Surgical History: Reports: Appendectomy Neurological Surgical History: Reports: Scoliosis Musculoskeletal Surgical History: Reports: Hip Replacement Social & Family History - Family History Cardiac: Reports: CAD - Tobacco Use Smoking Status *Q: Never Smoker Second Hand Smoke Exposure: No - Caffeine Use Caffeine Use: Reports: Coffee Caffeine Use Comment: 1/2 cup regular coffee in a.m. - Alcohol Use Days Per Week of Alcohol Use: 0 - Recreational Drug Use Recreational Drug Use: No ED ROS GENERAL - Review of Systems Review Of Systems: See Below Constitutional: Reports: No Symptoms. Denies: Diaphoresis HEENT: Reports: No Symptoms Respiratory: Reports: Shortness of Breath Cardiovascular: Reports: Chest Pain GI/Abdominal: Reports: Nausea : Reports: No Symptoms Musculoskeletal: Reports: No Symptoms ED EXAM, GENERAL - Physical Exam Exam: See Below Free Text/Narrative:: General: Elderly female, not in any distress, alert and oriented x3 HEENT: head is atraumatic normocephalic, eyes pupils equal round reactive to light, sclera clear no conjunctivitis appreciated. Ears blocked by cerumen bilaterally. Nose no septal deviation, nares are clear, no blood present. Mouth mucosa is moist and pink no erythema or exudate noted in soft palate, tongue is midline uvula is midline, dentition is intact. Neck: Supple no thyromegaly no tracheal deviation. Nodes: Cervical nodes subclavicular nodes nontender no palpable lymphadenopathy noted. Lungs: clear to auscultation bilaterally with symmetrical respirations, no adventitious noise appreciated. CV: Regular rate and rhythm S1 and S2 appreciated no murmurs rubs or gallops noted. Abdomen: Soft, nontender, no palpable masses or organomegaly appreciated, no distention no guarding bowel sounds are present,. Neuro: Cranial nerves II through XII grossly intact Skin: Warm and dry, intact Extremities: No lower extremity edema appreciated, Course - Vital Signs Last Recorded V/S: Last Vital Signs Temp 98.4 F 03/04/17 10:34 Pulse 65 03/04/17 10:34 Resp 16 03/04/17 10:34 BP 150/71 H 03/04/17 10:34 Pulse Ox 94 L 03/04/17 10:34 - Orders/Labs/Meds Orders: Active Orders 24 hr Category Date Time Status Cardiac Monitoring [RC] .As Directed Care 03/04/17 09:28 Active EKG Documentation Completion [RC] ASDIRECTED Care 03/04/17 09:29 Active Nitroglycerin [Nitrostat] Med 03/04/17 09:28 Active 0.4 mg SL Q5M PRN EKG 12 Lead [EK] Stat Ther 03/04/17 09:29 Ordered Medication Orders Nitroglycerin (Nitrostat) 0.4 mg SL Q5M PRN PRN Reason: Chest Pain Stop: 03/05/17 09:28 Last Admin: 03/04/17 09:44 Dose: 0.4 mg Labs: Laboratory Tests 03/04/17 03/04/17 03/04/17 Range/Units 09:38 09:38 09:38 WBC 6.4 (4.5-11.0) K/uL RBC 3.41 (3.30-5.50) M/uL Hgb 10.7 L (12.0-15.0) g/dL Hct 33.1 L (36.0-48.0) % MCV 97 (80-98) fL MCH 31 (27-31) pg MCHC 32 (32-36) % Plt Count 271 (150-400) K/uL Neut % (Auto) 69 H (36-66) % Lymph % (Auto) 19 L (24-44) % [place] % (Auto) 8 H (2-6) % Eos % (Auto) 4 (2-4) % Baso % (Auto) 1 (0-1) % PT 10.0 (9.5-12.0) sec INR 0.94 (0.80-1.20) APTT 22.2 L (27.0-36.0) sec Sodium 142 (140-148) mmol/L Potassium 4.3 (3.6-5.2) mmol/L Chloride 106 (100-108) mmol/L Carbon Dioxide 28 (21-32) mmol/L Anion Gap 8.0 (5.0-14.0) mmol/L BUN 20 H (7-18) mg/dL Creatinine 1.1 H (0.6-1.0) mg/dL Est Cr Clr Drug Dosing 26.16 mL/min Estimated GFR (MDRD) 47 L (>60) Glucose 96 (74-106) mg/dL Calcium 8.6 (8.5-10.1) mg/dL Total Bilirubin 0.3 (0.2-1.0) mg/dL AST 15 (15-37) U/L ALT 15 (12-78) U/L Alkaline Phosphatase 72 (46-116) U/L CK-MB (CK-2) 1.1 (0-3.6) mg/mL Troponin I < 0.017 (0.000-0.056) ng/mL [id number] Pept 349 (5-450) pg/mL Total Protein 6.3 L (6.4-8.2) g/dL Albumin 3.2 L (3.4-5.0) g/dL Globulin 3.1 (2.3-3.5) g/dL Albumin/Globulin Ratio 1.0 L (1.2-2.2) Meds: Medications Generic Name Dose Route Start Last Admin Trade Name Freq PRN Reason Stop Dose Admin Nitroglycerin 0.4 mg 03/04/17 09:28 03/04/17 09:44 Nitrostat SL 03/05/17 09:28 0.4 mg Q5M PRN Administration Chest Pain Discontinued Medications Generic Name Dose Route Start Last Admin Trade Name Freq PRN Reason Stop Dose Admin Aspirin 324 mg 03/04/17 09:28 03/04/17 09:42 Aspirin PO 03/04/17 09:29 324 mg ONETIME ONE Administration Departure - Departure Time of Disposition: 10:47 Disposition: Home, Self-Care 01 Condition: Fair Clinical Impression: Coronary artery disease Qualifiers: Coronary Disease-Associated Artery/Lesion type: [place] artery [place] vs. transplanted heart: [place] heart Associated angina: without angina Qualified Code(s): I25.10 - Atherosclerotic heart disease of [place] coronary artery without angina pectoris Forms: ED Department Discharge Additional Instructions: Continue to use the nitroglycerin as required to relieve chest pressure, if after 3 doses of medication you have no relief of chest pressure please report to the emergency department, Please followup with your primary care provider in 3-5 days if not better, please call return to the emergency department with worsening of symptoms. - My Orders Last 24 Hours: My Active Orders 03/04/17 09:28 Cardiac Monitoring [RC] .As Directed Nitroglycerin [Nitrostat] 0.4 mg SL Q5M PRN 03/04/17 09:29 EKG Documentation Completion [RC] ASDIRECTED EKG 12 Lead [EK] Stat - Assessment/Plan Last 24 Hours: My Active Orders 03/04/17 09:28 Cardiac Monitoring [RC] .As Directed Nitroglycerin [Nitrostat] 0.4 mg SL Q5M PRN 03/04/17 09:29 EKG Documentation Completion [RC] ASDIRECTED EKG 12 Lead [EK] Stat Plan: Assessment Acuity = acute Site and laterality = chest pain, get a patient with known history coronary artery disease Etiology = consistent with typical angina Manifestations = none Location of injury = Home Lab values = hemoglobin low at 10.7 consistent normochromic anemia creatinine elevated at 1.1 consistent chronic renal failure stage GIV albumin low at 3.1 consistent hypoalbuminemia EKG demonstrates a sinus rhythm no ST changes or depressions noted chest x-ray reveals no acute process Plan I did review lab EKG and chest x-ray results with her and her nurse she got complete relief with nitroglycerin provided I counseled her and gave instructions on how to use the nitroglycerin at home, however follow-up with her primary care in 3-5 days if not better Patient was in agreement with the plan all questions were answered, they were instructed to return to the emergency department or call for worsening symptoms. This note was dictated using [employer] voice recognition software please call with any questions.
[2017-03-04 10:36] VITALS: BP 150/71
--- NOTE | 2017-03-04 10:42 | CR ---
Chest 1V Frontal HISTORY: Chest pain. COMPARISON: 09/19/2016. FINDINGS: Moderate size hiatal hernia unchanged. Cardiac size normal. Pulmonary vessels normal. No f ocal infiltrates or effusions.
== END 2017-03-04 11:11 | disposition home or self-care (01) ==
LOC: JP.ED 08:52
DX: I25.10 Atherosclerotic heart disease of native coronary artery without angina pectoris (principal); I10 Essential (primary) hypertension; I25.2 Old myocardial infarction; E78.00 Pure hypercholesterolemia, unspecified; M19.90 Unspecified osteoarthritis, unspecified site; G30.9 Alzheimer's disease, unspecified; F02.80 Dementia in other diseases classified elsewhere, unspecified severity, without behavioral disturbance, psychotic disturbance, mood disturbance, and anxiety; Z98.49 Cataract extraction status, unspecified eye; Z95.5 Presence of coronary angioplasty implant and graft; Z90.49 Acquired absence of other specified parts of digestive tract; Z96.649 Presence of unspecified artificial hip joint; Z88.2 Allergy status to sulfonamides; Z88.5 Allergy status to narcotic agent; Z88.8 Allergy status to other drugs, medicaments and biological substances; Z79.82 Long term (current) use of aspirin; Z79.899 Other long term (current) drug therapy
CPT/HCPCS: 36415; 71010; 80053; 82553; 83880; 84484; 85025; 85610; 85730; 93005; 99285; A9270

== ENCOUNTER 2017-05-11 10:03 | Emergency (ER) | payer BC ==
[2017-05-11] MEDS ORDERED: Acetaminophen 325 MG Tab PO ONE (11:12)
--- NOTE | 2017-05-11 11:17 | EDM.PDOC ---
ED HPI GENERAL MEDICAL PROBLEM - General Chief Complaint: Lower Extremity Injury/Pain Stated Complaint: ARTHRITIS/RIGHT HIP/BACK PAIN Time Seen by Provider: 05/11/17 11:01 Source of Information: Reports: Patient, Family, RN Notes Reviewed History Limitations: Reports: Physical Impairment - History of Present Illness INITIAL COMMENTS - FREE TEXT/NARRATIVE: 89-year-old female presents emergency department day following a fall at home, she is complaining of left hip pain and right elbow pain, she did take Aleve prior to presenting to the emergency department she denies any loss of consciousness did not hit her head no neck pain Left Shoulder Pain Score (Numeric/FACES): 8 - Related Data Allergies Allergy/AdvReac Type Severity Reaction Status Date / Time iodine Allergy Cannot Verified 05/11/17 10:26 Remember oxycodone HCl [From Percocet] Allergy Hives Verified 05/11/17 10:26 Sulfa (Sulfonamide Allergy Hives Verified 05/11/17 10:26 Antibiotics) Home Meds: Home Meds Aspirin [Halfprin] 81 mg PO DAILY 08/09/13 [History] atorvaSTATin [Lipitor] 20 mg PO BEDTIME 08/09/13 [History] Acetaminophen [Mapap] 500 mg PO QID 04/15/16 [History] Cholecalciferol (Vitamin D3) [Vitamin D3] 1 tab PO DAILY 04/15/16 [History] Multivitamin [Multivitamins] 1 cap PO DAILY 04/15/16 [History] Donepezil [Aricept] 5 mg PO BEDTIME 11/03/16 [History] Irbesartan 300 mg PO DAILY 12/14/16 [History] Ferrous Sulfate 325 mg PO DAILY #30 tablet 12/15/16 [Rx] Omeprazole 20 mg PO DAILY #30 cap.cr 12/15/16 [Rx] *Excedrin 1 tab PO QID 03/04/17 [History] Past Medical History HEENT History: Reports: Allergic Rhinitis, Cataract, Sinusitis Cardiovascular History: Reports: CAD, High Cholesterol, Hypertension, [place] Gastrointestinal History: Reports: Diverticulosis Musculoskeletal History: Reports: Arthritis, Back Pain, Chronic Other Musculoskeletal History: back surgery Neurological History: Reports: Alzheimers Disease Other Neuro History: short term memory increase in loss. Psychiatric History: Reports: Dementia Hematologic History: Reports: Anemia - Infectious Disease History Infectious Disease History: Reports: Chicken Pox, Influenza, Measles, Mumps - Past Surgical History HEENT Surgical History: Reports: Cataract Surgery Cardiovascular Surgical History: Reports: Coronary Artery Stent GI Surgical History: Reports: Appendectomy Neurological Surgical History: Reports: Scoliosis Musculoskeletal Surgical History: Reports: Hip Replacement Social & Family History - Family History Cardiac: Reports: CAD - Tobacco Use Smoking Status *Q: Unknown Ever Smoked Second Hand Smoke Exposure: No - Caffeine Use Caffeine Use: Reports: Coffee Caffeine Use Comment: 1/2 cup regular coffee in a.m. - Alcohol Use Days Per Week of Alcohol Use: 0 - Recreational Drug Use Recreational Drug Use: No Review of Systems - Review of Systems Review Of Systems: See Below Constitutional: Reports: No Symptoms Eyes: Reports: No Symptoms Respiratory: Reports: No Symptoms Cardiovascular: Reports: No Symptoms GI/Abdominal: Reports: No Symptoms Musculoskeletal: Reports: Arm Pain, Joint Pain (Hip pain left) Skin: Reports: No Symptoms Neurological: Reports: No Symptoms Psychiatric: Reports: No Symptoms ED EXAM, GENERAL - Physical Exam Exam: See Below Free Text/Narrative:: Muscle skeletal exam I do appreciate some bruising on the left forearm she complains of tenderness at the right right elbow also complains tenderness over the left hip remainder exam ankles knees bilaterally no tenderness no tenderness over the right hip no tenderness shoulders no tenderness at the left elbow no tenderness at the wrist. Neck full range of motion nontender to palpation Exam Limited By: Physical Impairment (Dementia) General Appearance: Alert, No Apparent Distress Respiratory/Chest: No Respiratory Distress, Lungs Clear, Normal Breath Sounds Cardiovascular: Regular Rate, Rhythm, No Murmur Course - Vital Signs Last Recorded V/S: Last Vital Signs Temp 97.7 F 05/11/17 10:23 Pulse 71 05/11/17 10:23 Resp 18 05/11/17 10:23 BP 136/61 05/11/17 10:23 Pulse Ox 97 05/11/17 10:23 - Orders/Labs/Meds Meds: Medications Discontinued Medications Generic Name Dose Route Start Last Admin Trade Name Fran PRN Reason Stop Dose Admin Acetaminophen 650 mg 05/11/17 11:12 05/11/17 11:21 Tylenol PO 05/11/17 11:13 650 mg NOW ONE Administration Departure - Departure Time of Disposition: 13:30 Disposition: Home, Self-Care 01 Condition: Fair Clinical Impression: Contusion of hip - Discharge Information Referrals: Aisha Zhang NP [Primary Care Provider] - Forms: ED Department Discharge Additional Instructions: Continue to use Tylenol as needed for pain control, try the Ultram for breakthrough pain, Please followup with your primary care provider in 3-5 days if not better, please call return to the emergency department with worsening of symptoms. - Assessment/Plan Plan: Assessment Acuity = acute Site and laterality = bone contusions left hip Etiology = secondary to fall Manifestations = none Location of injury = Home Lab values = x-ray show no fracture Plan Did review x-rays with her and her personal injury paralegal she is not interested moving to assisted living at this time I offered her tramadol for pain control, but she is going to continue to use Tylenol as needed follow-up primary care 5-7 days for reevaluation Patient was in agreement with the plan all questions were answered, they were instructed to return to the emergency department or call for worsening symptoms. This note was dictated using [employer] voice recognition software please call with any questions.
--- NOTE | 2017-05-11 13:12 | CR ---
Hip Min 2V or 3V Lt HISTORY: Fall, pain. COMPARISON: 04/09/2016. FINDINGS: Mild/moderate degenerative change left hip. Marginal osteophyte formation. No acute fractur e or dislocation. No bony destructive process.
--- NOTE | 2017-05-11 13:13 | CR ---
Elbow Min 3V Rt HISTORY: Fall, pain. COMPARISON: None FINDINGS: No effusion or fracture. No dislocation. No bony destructive process.
--- NOTE | 2017-05-11 13:14 | CR ---
Hip Min 2V or 3V Rt HISTORY: Pain COMPARISON: 04/09/2016. FINDINGS: Total right hip arthroplasty change. Excellent alignment. No fracture or dislocation.
[2017-05-11 13:45] VITALS: BP 137/59
== END 2017-05-11 13:49 | disposition home or self-care (01) ==
LOC: JP.ED 10:03
DX: S70.02XA Contusion of left hip, initial encounter (principal); S50.12XA Contusion of left forearm, initial encounter; I25.2 Old myocardial infarction; I10 Essential (primary) hypertension; I25.10 Atherosclerotic heart disease of native coronary artery without angina pectoris; E78.00 Pure hypercholesterolemia, unspecified; M19.90 Unspecified osteoarthritis, unspecified site; G30.9 Alzheimer's disease, unspecified; F02.80 Dementia in other diseases classified elsewhere, unspecified severity, without behavioral disturbance, psychotic disturbance, mood disturbance, and anxiety; Z88.2 Allergy status to sulfonamides; Z88.5 Allergy status to narcotic agent; Z88.8 Allergy status to other drugs, medicaments and biological substances; Z79.82 Long term (current) use of aspirin; Z79.899 Other long term (current) drug therapy; Z98.49 Cataract extraction status, unspecified eye; Z95.5 Presence of coronary angioplasty implant and graft; Z90.49 Acquired absence of other specified parts of digestive tract; Z96.649 Presence of unspecified artificial hip joint; W19.XXXA Unspecified fall, initial encounter; Y92.009 Unspecified place in unspecified non-institutional (private) residence as the place of occurrence of the external cause
CPT/HCPCS: 73080; 73502; 99284; A9270